=== PATIENT | male | born 1995 | race African-American/Black ===

== ENCOUNTER 2019-04-22 02:01 | Emergency (ER) | payer SELFPAY ==
[~2019-04-22] VITALS: Ht 193 cm; Wt 173.0 kg
[2019-04-22] MEDS ORDERED: ONDANSETRON ODT 8 MG ONE (02:53)
[2019-04-22] MEDS ORDERED: ASPIRIN 81 MG TABLET CHEW ONE (02:53)
[2019-04-22] MEDS ORDERED: ONDANSETRON ODT 8 MG PO ONE (03:00)
[2019-04-22] MEDS ORDERED: ASPIRIN 81 MG TABLET CHEW PO ONE (03:00)
[2019-04-22 03:08] LABS: MEAN CORPUSCULAR HEMOGLOBIN 31.9 pg (27.5-34.5); MEAN CORPUSCULAR HGB CONC 33.3 g/dL (33.2-36.2); MEAN CORPUSCULAR VOLUME 96.1 fL (81-97); MEAN PLATELET VOLUME 8.8 fL (7.4-10.4); PLATELET COUNT 194 x10^3/uL (130-400); RED BLOOD COUNT 4.49 x10^6/uL (4.38-5.82); RED CELL DISTRIBUTION WIDTH 13.9 % (9.4-14.8)
[2019-04-22 03:15] LABS: ALBUMIN 3.4 g/dL (3.4-5.0); ANION GAP 6 mmol/L (5-15); CALCIUM 8.5 mg/dL (8.5-10.1); CHLORIDE 107 mmol/L (98-107)
[2019-04-22 03:17] LABS: BASOPHILS # (AUTO) 0.05 x10^3/uL (0-0.1); BASOPHILS % (AUTO) 1 % (0-1); EOSINOPHILS # (AUTO) 0.13 x10^3/uL (0-0.4); EOSINOPHILS % (AUTO) 2 % (1-7); LYMPHOCYTES # (AUTO) 2.71 x10^3/uL (1-3.4); LYMPHOCYTES % (AUTO) 37 % (22-44); MD SCAN; MONOCYTES # (AUTO) 0.53 x10^3/uL (0.2-0.8); MONOCYTES % (AUTO) 7 % (2-9); NEUTROPHILS # (AUTO) 3.94 x10^3/uL (1.8-6.8); NEUTROPHILS % (AUTO) 54 % (42-75)
[2019-04-22 03:21] LABS: ALANINE AMINOTRANSFERASE 29 U/L (12-78); ALKALINE PHOSPHATASE 65 U/L (45-117); BILIRUBIN,TOTAL 0.4 mg/dL (0.2-1.0); CREATININE 1.08 mg/dL (0.7-1.3); TOTAL PROTEIN 6.9 g/dL (6.4-8.2); TROPONIN I < 0.015 ng/mL (0.000-0.045)
[2019-04-22 03:54] VITALS: BP 130/69
== END 2019-04-22 03:56 | disposition home or self-care (01) ==
LOC: ED 03:48
DX: R11.2 Nausea with vomiting, unspecified (principal); F17.210 Nicotine dependence, cigarettes, uncomplicated
CPT/HCPCS: 36415; 71046; 80053; 83690; 84484; 85025; 93005; 99284; Q0162

== ENCOUNTER 2019-05-19 17:22 | Emergency (ER) | payer SELFPAY ==
[~2019-05-19] VITALS: Ht 193 cm; Wt 170.0 kg
[2019-05-19] MEDS ORDERED: IBUPROFEN 800 MG TABLET PO ONE (18:00)
[2019-05-19] MEDS ORDERED: DEXAMETHASONE 4 MG TABLET PO ONE (18:00)
[2019-05-19 18:11] LABS: RAPID INFLUENZA A Negative (Negative); RAPID INFLUENZA B Negative (Negative)
[2019-05-19] MEDS ORDERED: IBUPROFEN 200 MG TABLET ONE (18:28)
[2019-05-19] MEDS ORDERED: DEXAMETHASONE 4 MG TABLET ONE (18:28)
--- NOTE | 2019-05-19 18:59 | NUR ---
Patient/Caregiver given discharge instructions and they have confirmed that they understand the instructions. Patient ambulatory with steady gait.
[2019-05-19 19:00] VITALS: BP 140/75
== END 2019-05-19 19:03 | disposition home or self-care (01) ==
LOC: ED 18:15
DX: J02.9 Acute pharyngitis, unspecified (principal); E66.01 Morbid (severe) obesity due to excess calories; F17.200 Nicotine dependence, unspecified, uncomplicated; Z72.9 Problem related to lifestyle, unspecified
CPT/HCPCS: 71046; 87081; 87400; 87880; 99284